=== PATIENT | female | born 1970 | race Two or more races ===

== ENCOUNTER → 2021-02-26 | Outpatient (CLI) | payer OTHER ==
[~2021-02-26] MED LIST: ALBU8.5H8 IH; ALPR0.5T7 PO; ASCO500T8 PO; ASPI-1026 PO; CARI-389 PO; CETI-158 PO; FLUT15.815 NS; HYDR25TA6 PO; LISI-170 PO; MONT10TA6 PO; NORT25CA78 PO; NUCALA; OMEP40CA8 PO; OXYC5TAB98 PO; PHEN37.53 PO; flaxseed oil PO
[2021-02-26 11:06] LABS: ALBUMIN 3.5 g/dL (3.4-5.0); ANION GAP 5 mmol/L (5-15); CALCIUM 8.8 mg/dL (8.5-10.1); CHLORIDE 106 mmol/L (98-107)
[2021-02-26 11:09] LABS: ALANINE AMINOTRANSFERASE 39 U/L (12-78); ALKALINE PHOSPHATASE 76 U/L (45-117); BILIRUBIN,TOTAL 0.3 mg/dL (0.2-1.0); CREATININE 0.73 mg/dL (0.55-1.02); TOTAL PROTEIN 7.1 g/dL (6.4-8.2)
== END | disposition home or self-care (01) ==
LOC: STAR 10:15
PROVIDERS: ATTEND Orthopaedic Surgery
DX: Z01.812 Encounter for preprocedural laboratory examination (principal); Z20.822 Contact with and (suspected) exposure to COVID-19; M76.42 Tibial collateral bursitis [Pellegrini-Stieda], left leg
CPT/HCPCS: 36415; 80053; U0003; U0005

== ENCOUNTER 2021-03-04 05:23 | Day surgery (SDC) | payer OTHER ==
[~2021-03-04] VITALS: Ht 167.6 cm; Wt 127.0 kg
[2021-03-04] MEDS ORDERED: EPINEPHRINE TOPICAL SOLN 1 MG/ML, 30ML ONE (05:55)
[2021-03-04] MEDS ORDERED: CHLORHEXIDINE 15 ML UDC PO ONE (06:00)
[2021-03-04] MEDS ORDERED: LACTATED RINGERS 1,000 ML IV SCH (06:00)
[2021-03-04 06:02] VITALS: BP 145/82
[2021-03-04] MEDS ORDERED: MIDAZOLAM 1 MG/ML, 2ML ONE (06:36)
[2021-03-04] MEDS ORDERED: FENTANYL PF 100 MCG/2ML ONE ×2 (06:36→09:25)
[2021-03-04] MEDS ORDERED: PHENYLEPHRINE 10 MG/ML ONE (06:56)
[2021-03-04] MEDS ORDERED: EPHEDRINE 50 MG/ML, 1ML ONE (06:56)
[2021-03-04] MEDS ORDERED: HYDROmorphone 1 MG/ML, 1ML INJ IVPush PRN (07:30)
[2021-03-04] MEDS ORDERED: OXYcodone 5 MG/5 ML ORAL.SOL UDC PO PRN (07:30)
[2021-03-04] MEDS ORDERED: LORazepam 2 MG/ML, 1ML IVPush PRN (07:30)
[2021-03-04] MEDS ORDERED: ACETAMINOPHEN 325 MG TABLET PO PRN (07:30)
[2021-03-04] MEDS ORDERED: LABETALOL 5MG/ML, 20ML IV PRN (07:30)
[2021-03-04] MEDS ORDERED: ALBUTEROL SULFATE 2.5 MG/3 ML NPPB PRN (07:30)
[2021-03-04] MEDS ORDERED: MEPERIDINE/PF 25MG/0.5ML IVPush PRN (07:30)
[2021-03-04] MEDS ORDERED: METHOCARBAMOL 1,000 MG in DEXTROSE 5% 100 ML IV PRN (07:30)
[2021-03-04] MEDS ORDERED: HALOPERIDOL 5 MG/ML IV PRN (07:30)
[2021-03-04] MEDS ORDERED: LIDOCAINE-MPF 2% ,5ML ONE (07:49)
[2021-03-04] MEDS ORDERED: BUPIVACAINE/PF 0.25% ONE (07:49)
[2021-03-04] MEDS ORDERED: PROPOFOL 10 MG/ML, 20ML ONE (07:59)
[2021-03-04] MEDS ORDERED: DEXAMETHASONE 4 MG/ML, 1ML ONE (07:59)
[2021-03-04] MEDS ORDERED: ONDANSETRON 2MG/ML, 2ML ONE (07:59)
[2021-03-04] MEDS ORDERED: ROCURONIUM 10MG/ML,5ML ONE (07:59)
[2021-03-04] MEDS ORDERED: SUCCINYLCHOLINE 20 MG/ML, 10ML ONE (07:59)
[2021-03-04] MEDS ORDERED: CEFAZOLIN 1,000 MG ONE ×2 (07:59)
[2021-03-04] MEDS ORDERED: HYDROmorphone 2 MG/ML, 1ML ONE (09:25)
[2021-03-04] MEDS ORDERED: OXYcodone 5 MG/5 ML ORAL.SOL UDC ONE (09:26)
[2021-03-04] MEDS: FENTANYL PF 100 MCG/2ML IV PRN ×2 (09:27→09:33)
== END 2021-03-04 11:25 | disposition home or self-care (01) ==
LOC: OUT 05:23
PROVIDERS: ATTEND Orthopaedic Surgery
DX: S46.012A Strain of muscle(s) and tendon(s) of the rotator cuff of left shoulder, initial encounter (principal); S43.432A Superior glenoid labrum lesion of left shoulder, initial encounter; M94.212 Chondromalacia, left shoulder; M65.812 Other synovitis and tenosynovitis, left shoulder; M75.42 Impingement syndrome of left shoulder; M75.52 Bursitis of left shoulder; M19.012 Primary osteoarthritis, left shoulder; M25.712 Osteophyte, left shoulder; I25.10 Atherosclerotic heart disease of native coronary artery without angina pectoris; J45.909 Unspecified asthma, uncomplicated; I10 Essential (primary) hypertension; K21.9 Gastro-esophageal reflux disease without esophagitis; E66.01 Morbid (severe) obesity due to excess calories; Z79.899 Other long term (current) drug therapy; Z87.891 Personal history of nicotine dependence; Z91.041 Radiographic dye allergy status; Z91.013 Allergy to seafood; X58.XXXA Exposure to other specified factors, initial encounter; Y93.89 Activity, other specified; Y92.89 Other specified places as the place of occurrence of the external cause; Y99.8 Other external cause status
CPT/HCPCS: 29823; 29824; 29826; 29827; 29828; 64415; C1713; J0330; J0690; J1100; J2250; J2370; J2405; J2704; J3010; J7120